=== PATIENT | male | born 1970 | race Caucasian/White ===

== ENCOUNTER 2020-09-29 16:56 | Emergency (ER) | payer BC ==
[~2020-09-29 16:56] MED LIST: ALEVE220 MG PO; ALPRAZOLAM1 M1 PO; CARDI-OMEGA1000 MG PO; FLEXERIL 1010 MG/TAB PO; GOOD NEIGHBOR200 M1 PO; GOOD SENSE ASPI81 M1 PO; IBUPRIN200 MG PO; LISINOPRIL/HCTZ1 TA2 PO; METFORMIN1000 MG PO; NORCO 325 MG-51 TAB PO; OMEPRAZOLE20 M2 PO
[2020-09-29] MEDS ORDERED: FARXIGA5 MG PO (17:19)
[2020-09-29] MEDS ORDERED: HCTZ 25MG25 MG PO (17:19)
[2020-09-29] MEDS ORDERED: ALPRAZOLAM1 MG PO (17:19)
[2020-09-29] MEDS ORDERED: GLUCOPHAGE PO (17:20)
[2020-09-29] MEDS ORDERED: LISINOPRIL40 MG PO (17:20)
[2020-09-29] MEDS ORDERED: ZOLPIDEM TART12.5 MG PO (17:20)
[2020-09-29 17:37] LABS: HEMATOCRIT 42.7 % (42.0-52.0); HEMOGLOBIN 14.7 g/dL (13.5-18.0); MEAN CELL VOLUME 91 fl (78-100); MEAN CORPUSCULAR HEMOGLOBIN 31 pg (27-31); MEAN CORPUSCULAR HGB CONC 34 g/dL (33-37); MEAN PLATELET VOLUME 8.6 fl (7.4-10.4); PLATELET COUNT 299 K/mm3 (130-400); RED BLOOD COUNT 4.71 M/mm3 (4.20-5.60); WHITE BLOOD COUNT 11.7 K/mm3 (4.8-10.8)
[2020-09-29 17:51] LABS: ALBUMIN 4.5 g/dL (3.5-5.0); POTASSIUM 4.1 mmol/L (3.5-5.1)
[2020-09-29 17:53] LABS: CALCIUM 9.7 mg/dL (8.3-10.5)
[2020-09-29 17:54] LABS: TOTAL PROTEIN 7.7 g/dL (6.4-8.3)
[2020-09-29 17:56] LABS: TOTAL BILIRUBIN 0.3 mg/dL (0.2-1.2)
[2020-09-29 18:19] LABS: LYMPHOCYTE 6 % (20-51); MONOCYTE 7 % (3-10); NEUTROPHILS 87 % (42-75)
[2020-09-29 18:32] LABS: URINE APPEARANCE CLEAR; URINE COLOR YELLOW
[2020-09-29 18:33] LABS: URINE BILIRUBIN NEGATIVE (NEGATIVE); URINE BLOOD TRACE (NEGATIVE); URINE KETONE NEGATIVE (NEGATIVE); URINE LEUKOCYTE ESTERASE NEGATIVE (NEGATIVE); URINE NITRATE NEGATIVE (NEGATIVE); URINE PROTEIN(semi-quant) NEGATIVE (NEGATIVE); URINE UROBILINOGEN NORMAL (NORMAL); URINE WBC 0-1 /hpf (0-3)
[2020-09-29] MEDS ORDERED: METRONIDAZOLE500 M1 PO (18:56)
[2020-09-29] MEDS ORDERED: CIPRO500 M1 PO (18:56)
[2020-09-29 19:26] VITALS: BP 136/97
== END 2020-09-29 19:23 | disposition home or self-care (01) ==
LOC: ED 16:56
PROVIDERS: Family Medicine
DX: K57.92 Diverticulitis of intestine, part unspecified, without perforation or abscess without bleeding (principal); E11.9 Type 2 diabetes mellitus without complications; F41.9 Anxiety disorder, unspecified; F17.210 Nicotine dependence, cigarettes, uncomplicated; Z79.84 Long term (current) use of oral hypoglycemic drugs; Z79.899 Other long term (current) drug therapy